=== PATIENT | male | born 1995 | race Two or more races ===

== ENCOUNTER 2016-09-11 14:24 | Emergency (ER) | payer OTHER ==
[2016-09-11 14:44] VITALS: BP 138/71; PULSE 79; TEMP 98; BMI 25.0
[2016-09-11] MEDS ORDERED: KETOROLAC TROMETHAMINE 60 MG/2 ML VIAL IM ONE (16:32)
[2016-09-11] MEDS ORDERED: diazePAM 5 MG TABLET PO ONE (16:32)
[2016-09-11] MEDS ORDERED: diazePAM 5 MG TABLET ONE (16:33)
[2016-09-11] MEDS ORDERED: KETOROLAC TROMETHAMINE 60 MG/2 ML VIAL ONE (16:33)
--- NOTE | 2016-09-11 16:38 | PDOC ---
History of Present Illness - General Chief Complaint: Back Pain Stated Complaint: LOWER BACK PAIN Time Seen by Provider: 09/11/16 16:07 History Source: Patient - History of Present Illness Occurred: reports: this afternoon Pain Location: reports: back Past History - Past Medical History Allergies/Adverse Reactions: Allergies Allergy/AdvReac Type Severity Reaction Status Date / Time No Known Allergies Allergy Verified 09/11/16 14:44 Home Medications: Ambulatory Orders Cyclobenzaprine HCl [Flexeril -] 10 mg PO TID #9 tablet 09/11/16 Ibuprofen [Motrin -] 800 mg PO Q6H #30 tablet 09/11/16 - Psycho/Social/Smoking Cessation Hx Suicidal Ideation: No Smoking History: Current every day smoker Number of Cigarettes Smoked Daily: 1 Information on smoking cessation initiated: No Review of Systems - Review of Systems Constitutional: No: Chills, Fever : No: Dysuria, Flank Pain, Hematuria Musculoskeletal: Yes: Back Pain Neurological: No: Numbness, Tingling, Weakness *Physical Exam - Vital Signs Last Vital Signs Temp Pulse Resp BP Pulse Ox 98 F 79 18 138/71 98 09/11/16 14:41 09/11/16 14:41 09/11/16 14:41 09/11/16 14:41 09/11/16 14:41 - Physical Exam General Appearance: Yes: Appropriately Dressed. No: Apparent Distress HEENT: positive: Normal Voice Neck: positive: Supple Respiratory/Chest: negative: Respiratory Distress Gastrointestinal/Abdominal: positive: Soft. negative: Tender Musculoskeletal: positive: Vertebral Tenderness (ttp to LS spine). negative: CVA Tenderness Integumentary: positive: Dry, Warm Neurologic: positive: Fully Oriented, Alert, Normal Mood/Affect, Motor Strength 5/5 Medical Decision Making - Medical Decision Making 09/11/16 16:33 21-year-old male, denies any past medical history, here with lower back pain that started suddenly today while at work. Patient states he was sitting and having lunch and when he leaned forward, felt pain in his mid lower back. States pain sharp with 10 out of 10 and worse with ambulation. No radiation of pain, lower extremity numbness, tingling, weakness, saddle anesthesia or bladder or bowel incontinence. Has not taken anything for pain. No dysuria, hematuria, nausea or vomiting. Patient states he has had similar pain in the past and that, that is the reason why he stopped running. States pain has never been this severe see exam Lower back pain Similar pain in past No trauma No red flags at this rosy, i.e cauda equina, infxn -pain control>reassess 09/11/16 16:37 09/11/16 17:22 As per patient, pain significantly improved. We'll discharge with prescriptions and instructed to follow-up with PMD if pain persists 09/11/16 17:24 *DC/Admit/Observation/Transfer Diagnosis at time of Disposition: Low back pain Qualifiers: Chronicity: acute Back pain laterality: midline Sciatica presence: without sciatica Qualified Code(s): M54.5 - Low back pain - Discharge Dispostion Disposition: HOME Condition at time of disposition: Improved - Prescriptions Prescriptions: Cyclobenzaprine HCl [Flexeril -] 10 mg PO TID #9 tablet Ibuprofen [Motrin -] 800 mg PO Q6H #30 tablet - Patient Instructions Printed Discharge Instructions: Low Back Pain Additional Instructions: Take meds as needed and follow-up with PMD if symptoms persist - Post Discharge Activity Work/School Note: Back to Work
== END 2016-09-11 17:25 | disposition home or self-care (01) ==
LOC: JERFT 14:24
PROC: 3E0233Z Introduction of Anti-inflammatory into Muscle, Percutaneous Approach (ICD-10-PCS; principal; 2016-09-11)
DX: M54.5 Low back pain (principal); F17.210 Nicotine dependence, cigarettes, uncomplicated
CPT/HCPCS: 96372; 99281-25